=== PATIENT | male | born 1990 | race Two or more races ===

== ENCOUNTER 2020-04-20 12:04 | Emergency (ER) | payer MEDICAID ==
[~2020-04-20] VITALS: Ht 162.6 cm; Wt 77.3 kg
[2020-04-20 15:34] LABS: APPEARANCE,URINE CLEAR (CLEAR); BILIRUBIN,URINE NEGATIVE (NEGATIVE); GLUCOSE, URINE (UA) NEGATIVE (NEGATIVE); KETONES,URINE TRACE mg/dL (NEGATIVE); LEUKOCYTE ESTERASE ,URINE NEGATIVE (NEGATIVE); NITRATE,URINE NEGATIVE (NEGATIVE); OCCULT BLOOD,URINE LARGE (NEGATIVE); PH,URINE 5.5 (5.0-8.0); PROTEIN,URINE TRACE (NEGATIVE); UROBILINOGEN,URINE 0.2 mg/dL (<=1.0)
[2020-04-20] MEDS ORDERED: IBUPROFEN 600 MG TABLET PO ONE (15:45)
[2020-04-20 16:11] VITALS: BP 155/70
[2020-04-20 16:34] LABS: BACTERIA,URINE None Seen /HPF (None Seen); SQUAMOUS EPITHELIAL CELL,UR Rare /LPF (None Seen); WBC,URINE 0-2 /HPF (0-5)
== END 2020-04-20 18:34 | disposition home or self-care (01) ==
LOC: EMS 12:04
DX: N20.9 Urinary calculus, unspecified (principal)
CPT/HCPCS: 74176; 81001-TC; Z7502; Z7610